=== PATIENT | female | born 1995 | race Hispanic/Latino ===

== ENCOUNTER 2017-09-10 22:00 | Emergency (ER) | payer MEDICAID ==
[2017-09-10] MEDS ORDERED: LIDOCAINE 1%-EPI 1:100,000 20 ML VIAL IJ ONE (22:46)
== END 2017-09-11 01:51 | disposition home or self-care (01) ==
LOC: EDH 22:00
DX: O86.19 Other infection of genital tract following delivery (principal)
CPT/HCPCS: 56420; 99283; J3490